=== PATIENT | male | born 1980 | race Caucasian/White ===

== ENCOUNTER 2016-04-15 15:52 | Inpatient (IN) | payer BC ==
[~2016-04-15] VITALS: Ht 185.4 cm; Wt 100.3 kg
[~2016-04-15 15:52] MED LIST: LRT5 PO
[2016-04-15] MEDS ORDERED: ONDANSETRON INJ 2 MG/ML 2 ML VIAL IV STA (16:00)
[2016-04-15] MEDS ORDERED: SODIUM CHLORIDE 0.9% 1000ML 1,000 ML IV STA (16:00)
[2016-04-15] MEDS: HYDROmorphone INJ 2 MG/ML SYR/VIAL IV PRN ×4 (16:12→18:44)
--- NOTE | 2016-04-15 16:20 | EMERGENCY ROOM VISIT NOTE ---
History Report prepared by Nabila: Jeff Jones Under the Supervision of: Dr. Griffin Massey M.D. First contact with patient: 15:25 Chief Complaint: ANKLE PAIN Stated Complaint: ANKLE FX History of Present Illness The patient is a 36 year old male who presents to the Emergency Room via ambulance with complaints of an acute right ankle injury that occurred 1.5 hours prior to arrival. The patient was cutting wood when he slipped in some snow. While trying to catch his balance his right foot got caught and twisted. The patient now complains of severe right ankle pain, which he is not able to put pressure on secondary to pain. The patient was wearing a boot that goes above the ankle. The patient denies head, neck, back, or chest pain. He is not on any blood thinners. The patient does not follow up with an Orthopedist in the area. 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 A total of 10 systems reviewed and were otherwise negative. Past Medical & Surgical Medical Problems: (1) No known health problems Family History No pertinent family history Social History Marital Status: in relationship Housing Status: lives with family Current/Historical Medications Scheduled Hydrocodone/Acetaminophen 5MG/500MG (Vicodin 5MG/500MG), 2 TABLETS PO Q4HR PRN Allergies Coded Allergies: No Known Allergies (Verified , 07/24/07) Physical Exam Vital Signs Date Time Temp Pulse Resp B/P Pulse Ox O2 Delivery O2 Flow Rate FiO2 04/15/16 17:22 88 18 135/84 94 Room Air 04/15/16 16:34 102 20 126/83 93 Room Air 04/15/16 16:10 37.1 94 18 134/94 96 Room Air Physical Exam GENERAL: Patient is in no acute distress. HEENT: No acute trauma, normocephalic atraumatic, mucous membranes moist, no nasal congestion, no scleral icterus. NECK: No stridor, no adenopathy, no meningismus, trachea is midline. LUNGS: Clear to auscultation bilaterally, no wheeze, no rhonchi, breath sounds equal. HEART: Without murmurs gallops or rubs, regular rate and rhythm. ABDOMEN: Soft, nontender, bowel sounds positive, no hernias, no peritonitis. EXTREMITIES: Subtle deformity to distal right tib-fib, some swelling present, no active bleeding, there is a strong dorsalis pedis pulse on the right, the right knee appears uninjured. NEUROLOGIC: Oriented x 3, no acute motor or sensory deficits, no focal weakness. SKIN: No rash, no jaundice, no diaphoresis. Medical Decision & Procedures ER Provider Diagnostic Interpretation: X ray results and stated below per my interpretation and radiologist interpretation. Other radiology results and stated below per my review and radiologist interpretation: RIGHT ANKLE MIN 3 VIEWS ROUTINE, RIGHT TIBIA/FIBULA 2 VIEWS ROUTINE CLINICAL HISTORY: Fall. Right leg and ankle pain. COMPARISON STUDY: None. FINDINGS: Comminuted fractures involving the distal shaft of the right tibia and mid shaft of the right fibula. The tibial fracture demonstrates up to 7 mm of lateral displacement and 9 mm of posterior displacement. There is also 7 mm of posterior displacement of the fibular fracture. There is slight lateral angulation of the fractures. Soft tissue swelling within the mid to distal lower leg. No soft tissue gas identified. The ankle mortise is maintained. IMPRESSION: Comminuted and displaced distal tibial and mid fibular fractures as described above. The ankle mortise is maintained. Electronically signed by: Robert Clark M.D. 04/15/2016 5:03 PM Dictated Date/Time: 04/15/2016 5:00 PM RIGHT ANKLE MIN 3 VIEWS ROUTINE, RIGHT TIBIA/FIBULA 2 VIEWS ROUTINE CLINICAL HISTORY: Fall. Right leg and ankle pain. COMPARISON STUDY: None. FINDINGS: Comminuted fractures involving the distal shaft of the right tibia and mid shaft of the right fibula. The tibial fracture demonstrates up to 7 mm of lateral displacement and 9 mm of posterior displacement. There is also 7 mm of posterior displacement of the fibular fracture. There is slight lateral angulation of the fractures. Soft tissue swelling within the mid to distal lower leg. No soft tissue gas identified. The ankle mortise is maintained. IMPRESSION: Comminuted and displaced distal tibial and mid fibular fractures as described above. The ankle mortise is maintained. Electronically signed by: Robert Clark M.D. 04/15/2016 5:03 PM Dictated Date/Time: 04/15/2016 5:00 PM Laboratory Results Test 04/15/16 16:47 Laboratory results reviewed by me. Medications Administered Medications (Trade) Dose Ordered Sig/Shen Route Start Time Stop Time Status Last Admin Dose Admin Ondansetron HCl (Zofran Inj) 4 mg NOW STAT IV 04/15/16 16:00 04/15/16 16:03 DC 04/15/16 16:11 4 MG Hydromorphone HCl 1 mg 1 mg Q30M PRN IV 04/15/16 16:00 04/29/16 15:59 04/15/16 17:25 1 MG Sodium Chloride (Nss 1000ml) 1,000 ml @ 200 mls/hr Q5H STAT IV 04/15/16 16:00 04/15/16 20:59 04/15/16 16:15 200 MLS/HR ED Course 1600: The patient was evaluated in room C6. A complete history and physical exam was performed. 1600: NSS 1000 ml @ 200 mls/hr, Dilaudid 1 mg IV, Zofran 4 mg IV. 1638: Discussed the case with Dr. Wasserman, [facility]. The patient will be evaluated. 1645: Updated the patient and his significant other. They are expecting Dr. Wasserman. 1700: Splint was ordered for the patient per Dr. Wasserman's request. A CT scan was also ordered. Medical Decision Differential diagnosis includes tib-fib ankle or foot fracture, ankle dislocation, neurovascular compromise, open fracture. The patient presents with an injury to his right distal leg and ankle. The right distal leg appeared fractured clinically. He had a strong distal dorsalis pedis pulse on the right. The foot was warm. There was no open areas to suggest open fracture. No significant dislocation clinically. Films of the right tib-fib and ankle show a comminuted and displaced fracture of both the fibula and tibia distally. The ankle itself was in proper position without dislocation. The patient received IV Dilaudid, IV saline and IV Zofran. He eventually had a splint applied to the right lower leg. I contacted Dr. Guardado of orthopedics. The patient will be brought into the hospital for surgical repair. The family is aware of the findings. Of note, it does not appear that the patient has suffered any other injuries. He has no other complaints and the only area of pain is at the distal right leg. Consults Time Called: 1630 Consulting Physician: Dr. Wasserman, [facility] Returned Call: [phone]: Discussed the case with Dr. Wasserman, [facility]. The patient will be evaluated. Impression Primary Impression: Closed fracture of distal end of right fibula and tibia Scribe Attestation The scribe's documentation has been prepared under my direction and personally reviewed by me in its entirety. I confirm that the note above accurately reflects all work, treatment, procedures, and medical decision making performed by me. Departure Information Dispostion Being Evaluated By Surgeon Referrals No Doctor, Assigned (PCP) Patient Instructions My [facility]
--- NOTE | 2016-04-15 17:04 | DIAGNOSTIC IMAGING REPORT ---
RIGHT ANKLE MIN 3 VIEWS ROUTINE, RIGHT TIBIA/FIBULA 2 VIEWS ROUTINE CLINICAL HISTORY: Fall. Right leg and ankle pain. COMPARISON STUDY: None. FINDINGS: Comminuted fractures involving the distal shaft of the right tibia and mid shaft of the right fibula. The tibial fracture demonstrates up to 7 mm of lateral displacement and 9 mm of posterior displacement. There is also 7 mm of posterior displacement of the fibular fracture. There is slight lateral angulation of the fractures. Soft tissue swelling within the mid to distal lower leg. No soft tissue gas identified. The ankle mortise is maintained. IMPRESSION: Comminuted and displaced distal tibial and mid fibular fractures as described above. The ankle mortise is maintained. Electronically signed by: Robert Clark M.D. 04/15/2016 5:03 PM Dictated Date/Time: 04/15/2016 5:00 PM
[2016-04-15] MEDS ORDERED: NURSING VERBAL MED ORDER ONE (17:15)
[2016-04-15] MEDS ORDERED: ONDANSETRON INJ 2 MG/ML 2 ML VIAL IV PRN (17:45)
[2016-04-15 17:55] VITALS: O2SAT 94; Ht 185.4 cm; Wt 100.3 kg
--- NOTE | 2016-04-15 18:12 | DIAGNOSTIC IMAGING REPORT ---
CHEST ONE VIEW PORTABLE HISTORY: pre-op COMPARISON: None. FINDINGS: The lungs are clear. Cardiac silhouette is normal in size. No pleural effusions. No pneumothorax. IMPRESSION: No acute process. Electronically signed by: Robert Clark M.D. 04/15/2016 6:11 PM Dictated Date/Time: 04/15/2016 6:10 PM
--- NOTE | 2016-04-15 18:41 | DIAGNOSTIC IMAGING REPORT ---
RIGHT LOWER LEG CT CT DOSE: 251.08 mGy.cm HISTORY: right tib/fib fx Right TECHNIQUE: Multiaxial CT images of the right lower leg were performed and reformatted in the sagittal and coronal plane without the use of contrast. COMPARISON: Right tibia/fibular 04/15/2016. FINDINGS: Subcutaneous edema/hemorrhage within the mid to distal right lower leg. This is secondary to the displaced distal tibial and mid fibular fractures. The fibular fracture is comminuted. The tibial fracture is only slightly comminuted. There are 2 punctate foci of gas adjacent to the medial edge of the distal tibial fracture. However, the tibial fracture does not clearly break the skin surface. There is also nondisplaced posterior malleolus fracture at the distal tibia. The ankle mortise is well-maintained. The distal tibial fracture demonstrates up to 9 mm of lateral displacement. The mid fibular fracture demonstrates 7 mm of posterior displacement. There is also mild posterior angulation of the fibular fracture. IMPRESSION: 1. Redemonstration of the comminuted and displaced distal tibial and mid fibular fractures as described above. 2. There is also a nondisplaced posterior malleolus fracture of the distal tibia. 3. Punctate foci of gas adjacent to the medial aspect of the tibial fracture raising possibility of a compound fracture. However, the fracture does not clearly break the skin surface at this time. Electronically signed by: Robert Clark M.D. 04/15/2016 6:40 PM Dictated Date/Time: 04/15/2016 6:34 PM
[2016-04-15 18:45] VITALS: BP 110/77; PULSE 85; TEMP 37; O2SAT 97
[2016-04-15] MEDS: MoRPHine SULFATE 4 MG/ML 1 ML CARP\\VIAL IV PRN ×2 (18:59→23:31)
[2016-04-15] MEDS: D5W AND 1/2NSS 1,000 ML IV SCH ×2 (19:11→23:44)
[2016-04-15 19:14] LABS: HEMATOCRIT 41.9 % (42-52); MEAN CELL VOLUME 87.3 fL (80-100); MEAN CORPUSCULAR HEMOGLOBIN 30.6 pg (25-34); MEAN CORPUSCULAR HGB CONC 35.1 g/dl (32-36); PLATELET COUNT 174 K/uL (130-400); WHITE BLOOD COUNT 11.55 K/uL (4.8-10.8)
[2016-04-15 19:30] LABS: PARTIAL THROMBOPLASTIN RATIO 0.9; PROTHROMBIN TIME (PATIENT) 10.3 SECONDS (9.0-12.0)
[2016-04-15 19:35] LABS: BUN/CREATININE RATIO 17.6 (10-20); CALCIUM 8.6 mg/dl (8.5-10.1); CREATININE 1.2 mg/dl (0.60-1.40); POTASSIUM 4.5 mmol/L (3.5-5.1)
[2016-04-15] MEDS: DOCUSATE SODIUM 100 MG CAP PO SCH (20:44)
[2016-04-15] MEDS: OXYCODONE HCL IR 5 MG TAB (IMMEDIATE RELEASE) PO PRN (20:45)
[2016-04-15 23:04] VITALS: BP 113/70; PULSE 77; TEMP 37.1; O2SAT 92
--- NOTE | 2016-04-15 23:05 | History and Physical ---
History & Physical Date & Time of Service: Apr 15, 2016 at 22:53 Chief Complaint: Right Tib/Fib Fracture Primary Care Physician: No Doctor, Assigned History of Present Illness Source: patient, spouse The patient is a 36-year-old male who presents emergency department via ambulance after an acute right ankle injury that occurred at one half hours prior to arrival. The patient reports that he was cutting wood when he slipped in some snow. His right foot got caught in between woodpiles, and when he twisted he developed severe right ankle pain and has been unable to put any pressure on the foot due to pain. Past Medical/Surgical History Medical Problems: (1) No known health problems Status: Chronic Family History No pertinent family history Social History Smoking Status: Current Some Day Smoker Smokeless Tobacco Use: No Alcohol Use: none Drug Use: cocaine Marital Status: , in relationship Housing status: lives with family Occupational Status: employed Multi-Drug Resistant Organisms History of MDRO: No Allergies Coded Allergies: No Known Allergies (Verified , 04/15/16) Home Medications No Active Prescriptions or Reported Meds Review of Systems The patient denies chest pain, palpitations, shortness of breath, cough, vision change, hearing change, sore throat, fevers, chills, sweats, weight change, fatigue, nausea, vomiting, abdominal pain, pelvic pain, blood in urine or stool , dysuria, urinary frequency or urgency, lightheadedness, dizziness, headache, memory loss, rash, abnormal bruising or bleeding, generalized weakness, numbness or tingling in arms, arthralgias or myalgias, back or neck pain, night sweats, or allergy symptoms. The review of systems is otherwise negative other than for that already noted above, and at least 10 systems have been reviewed. Physical Exam Vital Signs Date Time Temp Pulse Resp B/P Pulse Ox O2 Delivery O2 Flow Rate FiO2 04/15/16 18:45 37.0 85 16 110/77 97 Room Air 04/15/16 18:45 Room Air 04/15/16 17:55 94 Room Air 04/15/16 17:22 88 18 135/84 94 Room Air 04/15/16 16:34 102 20 126/83 93 Room Air 04/15/16 16:10 37.1 94 18 134/94 96 Room Air The patient is awake, well-developed and adequately nourished, alert and oriented 3, normocephalic and atraumatic, lying in bed and in mild to moderate acute distress secondary to right leg pain. HEENT--PERRL, EOMI, mucous membranes and oropharynx moist. Neck--supple, no JVD or bruits, thyroid normal, trachea midline, no adenopathy. Heart--normal S1 and S2, no extra beats, no murmurs, rubs or gallops. Lungs--clear bilaterally with good air movement, no respiratory distress, no accessory muscle use. Abdomen--normal bowel sounds and soft, nontender and nondistended, no hernias or masses, no organomegaly. Extremities--no cyanosis, clubbing or edema. There are good distal pulses b/l. Dermatologic--normal skin turgor, normal color, warm and dry, no abnormal lymph nodes. Right lower extremity with bruising and swelling over distal third. Neurologic--cranial nerves II through XII grossly intact. Rheumatologic--pain and swelling noted over distal third of right leg ankle and foot. Psychiatric--normal affect. Diagnostics Laboratory Results Results Past 24 Hours Test 04/15/16 19:06 Range/Units White Blood Count 11.55 4.8-10.8 K/uL Red Blood Count 4.80 4.7-6.1 M/uL Hemoglobin 14.7 14.0-18.0 g/dL Hematocrit 41.9 42-52 % Mean Corpuscular Volume 87.3 80-100 fL Mean Corpuscular Hemoglobin 30.6 25-34 pg Mean Corpuscular Hemoglobin Concent 35.1 32-36 g/dl RDW Standard Deviation 42.4 36.4-46.3 fL RDW Coefficient of Variation 13.2 11.5-14.5 % Platelet Count 174 130-400 K/uL Mean Platelet Volume 11.0 7.4-10.4 fL Prothrombin Time 10.3 9.0-12.0 SECONDS Prothromb Time International Ratio 1.0 0.9-1.1 Activated Partial Thromboplast Time 22.9 21.0-31.0 SECONDS Partial Thromboplastin Ratio 0.9 Sodium Level 144 136-145 mmol/L Potassium Level 4.5 3.5-5.1 mmol/L Chloride Level 108 98-107 mmol/L Carbon Dioxide Level 28 21-32 mmol/L Anion Gap 8.0 3-11 mmol/L Blood Urea Nitrogen 21 7-18 mg/dl Creatinine 1.20 0.60-1.40 mg/dl Est Creatinine Clear Calc Drug Dose 106.0 ml/min Estimated GFR () 89.6 Estimated GFR (Non- 77.3 BUN/Creatinine Ratio 17.6 10-20 Random Glucose 99 70-99 mg/dl Calcium Level 8.6 8.5-10.1 mg/dl Diagnostic Radiology Patient Name: DALTON ELIZABETH Unit Number: [id number] Dictated: 04/15/161699 Transcribed: 04/15/161699 [facility] Printed Date/Time: [~ rep prt dt]/[~ rep prt tm] [~ rep ct labl] - [~ rep ct ivnm] [facility] Radiology Department [place], [place] [id number] Dictated: 04/15/161699 Transcribed: 04/15/161699 [facility] Printed Date/Time: [~ rep prt dt]/[~ rep prt tm] [~ rep ct labl] - [~ rep ct ivnm] [~ rep ct add3]] RIGHT ANKLE MIN 3 VIEWS ROUTINE, RIGHT TIBIA/FIBULA 2 VIEWS ROUTINE CLINICAL HISTORY: Fall. Right leg and ankle pain. COMPARISON STUDY: None. FINDINGS: Comminuted fractures involving the distal shaft of the right tibia and mid shaft of the right fibula. The tibial fracture demonstrates up to 7 mm of lateral displacement and 9 mm of posterior displacement. There is also 7 mm of posterior displacement of the fibular fracture. There is slight lateral angulation of the fractures. Soft tissue swelling within the mid to distal lower leg. No soft tissue gas identified. The ankle mortise is maintained. IMPRESSION: Comminuted and displaced distal tibial and mid fibular fractures as described above. The ankle mortise is maintained. Electronically signed by: Robert Clark M.D. 04/15/2016 5:03 PM Dictated Date/Time: 04/15/2016 5:00 PM The status of this report is Signed. Draft = Not yet reviewed or approved by Radiologist. Signed = Reviewed and approved by Radiologist. <AttendingPhy></AttendingPhy> <FamilyPhy>No Doctor, Assigned</FamilyPhy> < PrimaryPhy>No Doctor, Assigned</PrimaryPhy> <UnitNumber>[id number]</UnitNumber> <VisitNumber>[id number]</VisitNumber> <PatientName>DALTON ELIZABETH</PatientName > <DateOfBirth>1980</DateOfBirth> <Location>[facility]</Location> <ServiceDate> 04/15/16</ServiceDate> <MNE>ESINDI</MNE> <OrderingPhy>Griffin Massey M.D.</ OrderingPhy> <OrderingPhyMNE>f rep ord dr peters</OrderingPhyMNE> <DictatingPhyMNE> f rep dict dr peters</DictatingPhyMNE> <CCListMNE>f rep ct mne</CCListMNE> < AdmittingPhyMNE>f pt admit dr peters</AdmittingPhyMNE> <AttendingPhyMNE>f pt attend dr peters</AttendingPhyMNE> <ConsultingPhyMNE>f pt consult dr peters</ConsultingPhyMNE> <FamilyPhyMNE>f pt fam dr peters</FamilyPhyMNE> <OtherPhyMNE>f pt other dr peters</OtherPhyMNE> < PrimaryPhyMNE>f pt prim care dr peters</PrimaryPhyMNE> <ReferringPhyMNE>f pt referring dr peters</ReferringPhyMNE> Patient Name: DALTON ELIZABETH Unit Number: [id number] Dictated: 04/15/161699 Transcribed: 04/15/161699 [facility] Printed Date/Time: [~ rep prt dt]/[~ rep prt tm] [~ rep ct labl] - [~ rep ct ivnm] [facility] [place] [place] [address] Dictated: 04/15/161699 Transcribed: 04/15/161699 [facility] Printed Date/Time: [~ rep prt dt]/[~ rep prt tm] [~ rep ct labl] - [~ rep ct ivnm] [~ rep ct add3]] RIGHT ANKLE MIN 3 VIEWS ROUTINE, RIGHT TIBIA/FIBULA 2 VIEWS ROUTINE CLINICAL HISTORY: Fall. Right leg and ankle pain. COMPARISON STUDY: None. FINDINGS: Comminuted fractures involving the distal shaft of the right tibia and mid shaft of the right fibula. The tibial fracture demonstrates up to 7 mm of lateral displacement and 9 mm of posterior displacement. There is also 7 mm of posterior displacement of the fibular fracture. There is slight lateral angulation of the fractures. Soft tissue swelling within the mid to distal lower leg. No soft tissue gas identified. The ankle mortise is maintained. IMPRESSION: Comminuted and displaced distal tibial and mid fibular fractures as described above. The ankle mortise is maintained. Electronically signed by: Robert Clark M.D. 04/15/2016 5:03 PM Dictated Date/Time: 04/15/2016 5:00 PM The status of this report is Signed. Draft = Not yet reviewed or approved by Radiologist. Signed = Reviewed and approved by Radiologist. <AttendingPhy></AttendingPhy> <FamilyPhy>No Doctor, Assigned</FamilyPhy> < PrimaryPhy>No Doctor, Assigned</PrimaryPhy> <UnitNumber>[id number]</UnitNumber> <VisitNumber>[id number]</VisitNumber> <PatientName>CLARADALTON</PatientName > <DateOfBirth>1980</DateOfBirth> <Location>[facility]</Location> <ServiceDate> 04/15/16</ServiceDate> <MNE>ESINDI</MNE> <OrderingPhy>Griffin Massey M.D.</ OrderingPhy> <OrderingPhyMNE>f rep ord dr peters</OrderingPhyMNE> <DictatingPhyMNE> f rep dict dr peters</DictatingPhyMNE> <CCListMNE>f rep ct fran</CCListMNE> < AdmittingPhyMNE>f pt admit dr peters</AdmittingPhyMNE> <AttendingPhyMNE>f pt attend dr peters</AttendingPhyMNE> <ConsultingPhyMNE>f pt consult dr peters</ConsultingPhyMNE> <FamilyPhyMNE>f pt fam dr peters</FamilyPhyMNE> <OtherPhyMNE>f pt other dr peters</OtherPhyMNE> < PrimaryPhyMNE>f pt prim care dr peters</PrimaryPhyMNE> <ReferringPhyMNE>f pt referring dr peters</ReferringPhyMNE> Patient Name: DALTON ELIZABETH Unit Number: [id number] Dictated: 04/15/161833 Transcribed: 04/15/161833 [facility] Printed Date/Time: [~ rep prt dt]/[~ rep prt tm] [~ rep ct labl] - [~ rep ct ivnm] [facility] [place] [address] Dictated: 04/15/161833 Transcribed: 04/15/161833 [facility] Printed Date/Time: [~ rep prt dt]/[~ rep prt tm] [~ rep ct labl] - [~ rep ct ivnm] RIGHT LOWER LEG CT CT DOSE: 251.08 mGy.cm HISTORY: right tib/fib fx Right TECHNIQUE: Multiaxial CT images of the right lower leg were performed and reformatted in the sagittal and coronal plane without the use of contrast. COMPARISON: Right tibia/fibular 04/15/2016. FINDINGS: Subcutaneous edema/hemorrhage within the mid to distal right lower leg. This is secondary to the displaced distal tibial and mid fibular fractures. The fibular fracture is comminuted. The tibial fracture is only slightly comminuted. There are 2 punctate foci of gas adjacent to the medial edge of the distal tibial fracture. However, the tibial fracture does not clearly break the skin surface. There is also nondisplaced posterior malleolus fracture at the distal tibia. The ankle mortise is well-maintained. The distal tibial fracture demonstrates up to 9 mm of lateral displacement. The mid fibular fracture demonstrates 7 mm of posterior displacement. There is also mild posterior angulation of the fibular fracture. IMPRESSION: 1. Redemonstration of the comminuted and displaced distal tibial and mid fibular fractures as described above. 2. There is also a nondisplaced posterior malleolus fracture of the distal tibia. 3. Punctate foci of gas adjacent to the medial aspect of the tibial fracture raising possibility of a compound fracture. However, the fracture does not clearly break the skin surface at this time. Electronically signed by: Robert Clark M.D. 04/15/2016 6:40 PM Dictated Date/Time: 04/15/2016 6:34 PM The status of this report is Signed. Draft = Not yet reviewed or approved by Radiologist. Signed = Reviewed and approved by Radiologist. <AttendingPhy></AttendingPhy> <FamilyPhy>No Doctor, Assigned</FamilyPhy> < PrimaryPhy>No Doctor, Assigned</PrimaryPhy> <UnitNumber>[id number]</UnitNumber> <VisitNumber>[id number]</VisitNumber> <PatientName>DALTON ELIZABETH</PatientName > <DateOfBirth>1980</DateOfBirth> <Location>[facility]</Location> <ServiceDate> 04/15/16</ServiceDate> <MNE>ESINDI</MNE> <OrderingPhy>Griffin Massey M.D.</ OrderingPhy> <OrderingPhyMNE>f rep ord dr peters</OrderingPhyMNE> <DictatingPhyMNE> f rep dict dr peters</DictatingPhyMNE> <CCListMNE>f rep ct mne</CCListMNE> < AdmittingPhyMNE>f pt admit dr peters</AdmittingPhyMNE> <AttendingPhyMNE>f pt attend dr peters</AttendingPhyMNE> <ConsultingPhyMNE>f pt consult dr peters</ConsultingPhyMNE> <FamilyPhyMNE>f pt fam dr peters</FamilyPhyMNE> <OtherPhyMNE>f pt other dr peters</OtherPhyMNE> < PrimaryPhyMNE>f pt prim care dr peters</PrimaryPhyMNE> <ReferringPhyMNE>f pt referring dr peters</ReferringPhyMNE> Patient Name: DALTON ELIZABETH Unit Number: [id number] Dictated: 04/15/161809 Transcribed: 04/15/161809 [facility] Printed Date/Time: [~ rep prt dt]/[~ rep prt tm] [~ rep ct labl] - [~ rep ct ivnm] [facility] [place] [place] [address] Dictated: 04/15/161809 Transcribed: 04/15/161809 [facility] Printed Date/Time: [~ rep prt dt]/[~ rep prt tm] [~ rep ct labl] - [~ rep ct ivnm] CHEST ONE VIEW PORTABLE HISTORY: pre-op COMPARISON: None. FINDINGS: The lungs are clear. Cardiac silhouette is normal in size. No pleural effusions. No pneumothorax. IMPRESSION: No acute process. Electronically signed by: Robert Clark M.D. 04/15/2016 6:11 PM Dictated Date/Time: 04/15/2016 6:10 PM The status of this report is Signed. Draft = Not yet reviewed or approved by Radiologist. Signed = Reviewed and approved by Radiologist. <AttendingPhy></AttendingPhy> <FamilyPhy>No Doctor, Assigned</FamilyPhy> < PrimaryPhy>No Doctor, Assigned</PrimaryPhy> <UnitNumber>[id number]</UnitNumber> <VisitNumber>[id number]</VisitNumber> <PatientName>CLARADALTON</PatientName > <DateOfBirth>1980</DateOfBirth> <Location>[facility]</Location> <ServiceDate> 04/15/16</ServiceDate> <MNE>ESINDI</MNE> <OrderingPhy>Ulysses Rooney M.D.< /OrderingPhy> <OrderingPhyMNE>f rep ord dr peters</OrderingPhyMNE> <DictatingPhyMNE >f rep dict dr peters</DictatingPhyMNE> <CCListMNE>f rep ct mickye</CCListMNE> < AdmittingPhyMNE>f pt admit dr peters</AdmittingPhyMNE> <AttendingPhyMNE>f pt attend dr peters</AttendingPhyMNE> <ConsultingPhyMNE>f pt consult dr peters</ConsultingPhyMNE> <FamilyPhyMNE>f pt fam dr peters</FamilyPhyMNE> <OtherPhyMNE>f pt other dr peters</OtherPhyMNE> < PrimaryPhyMNE>f pt prim care dr peters</PrimaryPhyMNE> <ReferringPhyMNE>f pt referring dr peters</ReferringPhyMNE> Impression Assessment and Plan Right tib-fib fracture, admitted to the orthopedic surgical service of Dr. Wasserman. He is generally healthy and active, has a normal chest x-ray, his EKG is still pending. If his EKG gets performed and is normal, the patient would be considered an acceptable risk for the upcoming surgery. If there is concern about compound fracture, the patient needs to be on broad-spectrum antibiotics. 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 Y/N: No Risk Level: Moderate Social Service Consult None Apply
[2016-04-15] MEDS ORDERED: VANCOMYCIN INJ 2,500 MG in SODIUM CHLORIDE 0.9% 500ML 500 ML IV STA (23:32)
[2016-04-15] MEDS ORDERED: VANCOMYCIN CONSULT ACTIVE PRN (23:45)
[2016-04-16] VITALS (13 sets, daily range): BP systolic 97–138; BP diastolic 58–78; PULSE 78–98; TEMP 37.1–37.5; O2SAT 90–97
[2016-04-16] MEDS: OXYCODONE HCL IR 5 MG TAB (IMMEDIATE RELEASE) PO PRN ×2 (01:41→05:31)
[2016-04-16] MEDS: MoRPHine SULFATE 4 MG/ML 1 ML CARP\\VIAL IV PRN (03:25)
--- NOTE | 2016-04-16 05:11 | Pharmacy Progress Note ---
Pharmacy Antibiotic Consult Date of Service: Apr 16, 2016. Pharmacy Dosing Scope Pharmacy is consulted to initiate Vancomycin IV dosing therapy, order appropriate labs and adjust drug dose/frequency. Subjective The patient is a 36 year old male admitted on Apr 15, 2016 at 17:31. Objective Height (Feet): 6 Height (Inches): 1.00 Weight (Kilograms): 100.300 Lab Results (24hrs): Laboratory Tests Test 04/15/16 19:06 BUN/Creatinine Ratio 17.6 Blood Urea Nitrogen 21 mg/dl Creatinine 1.20 mg/dl White Blood Count 11.55 K/uL Assessment & Plan ASSESSMENT: * Patient is a 36yo male admitted following a fall that resulted in R tib/fib displaced fracture. There is some concern of compound fracture, so broad- spectrum abx were initiated. Plan is for orthopedic evaluation and possible OR. PLAN: VANCOMYCIN: * Loading dose: Vancomycin 2500 mg (~25mg/kg) IV X 1 dose then: * Vancomycin 1500 mg IV every 10 hours. * Patient's estimated p'kinetic parameters (based on CrCl >100mL/min): * Vd ~ 0.7L/kg Ke ~ 0.087/hr t1/2 ~ 8hr * Goal trough level estimate: between 15 - 20 mcg/mL for bone/joint infx * Pharmacy will evaluate a vancomycin level near steady-state. Will order levels once surgical plans are in order. Pharmacy will continue to follow and will adjust dose/frequency as necessary. Thank you
[2016-04-16] MEDS: HEPARIN SOD 5000 UNIT/0.5 ML CARP SQ SCH ×2 (05:38→06:00)
[2016-04-16] MEDS ORDERED: CEFAZOLIN 2000 MG/60 ML D5W IV SCH (06:00)
[2016-04-16] MEDS: D5W AND 1/2NSS 1,000 ML IV SCH ×2 (06:10→13:37)
[2016-04-16] MEDS ORDERED: NALOXONE HCL 0.4 MG/1 ML VIAL/CARP IV PRN (08:30)
[2016-04-16] MEDS: MoRPHine SULFATE 1 MG/ML 50 ML PCA CASS IV PRN ×4 (08:43→23:09)
[2016-04-16] MEDS: DOCUSATE SODIUM 100 MG CAP PO SCH ×3 (09:00→22:16)
[2016-04-16] MEDS: SODIUM CHLORIDE 0.9% 1000ML 1,000 ML IV SCH ×2 (09:02→23:19)
--- NOTE | 2016-04-16 09:08 | HISTORY & PHYSICAL EXAMINATION ---
DATE OF ADMISSION: 04/15/2016 REASON FOR ADMISSION: Right distal tibia and fibular fracture. HISTORY OF PRESENT ILLNESS: The patient is a 36-year-old white male who states that he was cutting firewood yesterday. He states that when he took a step, his foot slipped and went down in between 2 logs. As he tried to back his way out of the log he had lost his balance and ended up twisting his right foot and he heard a large crack and had immediate pain in his right ankle. He was unable to bear weight on it and he was brought to [facility] ED where he was seen by the staff. X-rays were taken and then found that he had a distal tibia fracture, along with a midshaft to distal fibular fracture. He was put into a splint and admitted for further orthopedic care. The patient denies any loss of consciousness after the fall. He denies any shortness of breath, chest pain, lightheadedness prior to the fall or after. PAST MEDICAL HISTORY: Denies hypertension, diabetes mellitus, tuberculosis, hepatitis, COPD, or rheumatic fever. PAST SURGICAL HISTORY: Ethmoidectomy, sinus surgery in 2007. FAMILY HISTORY: Noncontributory. SOCIAL HISTORY: The patient has a history of tobacco use, but not regularly. He does not use alcohol and is . ALLERGIES: NKDA. MEDICATIONS: None. REVIEW OF SYSTEMS: No recent fevers, chills, night sweats, unexplained weight loss or weight gain. No flu or cold-like symptoms. No increased cough or sputum production. No shortness of breath at rest or on exertion. No hemoptysis. No history of chest pain, chest pressure, irregular heartbeat. No abdominal pain. No unusual nausea, vomiting or diarrhea. No history of hepatitis. No melena, hematochezia, hematemesis. No history of hematuria, pyuria, dysuria or renal calculi. No history of frequent urinary tract infection. No history of seizure disorder, CVA, TIA. PHYSICAL EXAMINATION: VITAL SIGNS: Noted to be temperature 37.1, pulse 84, respirations 16, BP 97/58, pulse ox 90 on room air. GENERAL: The patient is a well-developed, well-nourished white male who is alert and oriented x3 and in mild amount of distress secondary to right ankle pain. SKIN: Warm and dry. Turgor is good. HEENT: Head is normocephalic, atraumatic. There is no scleral icterus or injection. Nasal airway is patent. Oral mucosa is pink and moist. NECK: Supple without bruits or adenopathy. HEART: Regular rate and rhythm without murmurs or gallops noted. LUNGS: Clear to auscultation. ABDOMEN: Soft, round and nontender. Bowel sounds are present and active x4. GENITALIA AND RECTAL: Not performed at this time. EXTREMITIES: On examination of the patient's right lower extremity, he has a posterior splint placed with a stirrup over the medial and lateral aspect of the lower extremity as well. Toes are pink and warm and have good sensation and are all mobile at this time. Splint is left intact during exam. His right knee is nontender on palpation and has good range of motion. Hip is nontender at this time as well. Left lower extremity is benign and left hip, knee, and ankle have good range of motion and strengths. Upper extremities are unaffected and he has excellent range of motion of his upper extremities at this time with strengths being equal bilaterally. Distal pulses, he has got good capillary refill, less than 2 seconds noted in the toes. He has got swelling in the dorsum of the right foot and pulse is palpable. Upper extremity pulses are 2/4 bilaterally. NEUROLOGICAL: Cranial nerves II-XII are intact. DIAGNOSIS: Right tibia fibula fracture. PLAN: At this time, the patient is on bed rest and continue with ice and elevation and pain control. He will likely need ORIF versus IM rodding of the right tibia. Procedures have been explained to the patient in detail going over risks and benefits for the patient of which he is in agreement for the surgery. We will plan for OR today with [facility] physician. Discussed with the patient that if he was too swollen in the lower extremity that surgery would have to be postponed until swelling comes down. This will be assessed at the time of the operation.
[2016-04-16] MEDS ORDERED: VANCOMYCIN INJ 1,500 MG in SODIUM CHLORIDE 0.9% 500ML 500 ML IV SCH (10:00)
--- NOTE | 2016-04-16 11:23 | Progress Note ---
Subjective Date of Service: Apr 16, 2016. Subjective Pt evaluation today including: conversation w/ patient, physical exam, chart review, lab review, review of studies, review of inpatient medication list Problem List Medical Problems: (1) Closed fracture of distal end of right fibula and tibia Status: Acute Review of Systems Constitutional: No chills, No fever Respiratory: No cough, No dyspnea on exertion, No shortness of breath, No sputum, No wheezing Cardiac: No chest pain, No orthopnea Abdomen: No constipation, No diarrhea, No nausea, No pain, No vomiting Musculoskeletal: + joint pain, No muscle pain Male : No dysuria, No urinary frequency Neurologic: No numbness/tingling, No paralysis, No weakness Objective Vital Signs Date Time Temp Pulse Resp B/P Pulse Ox O2 Delivery O2 Flow Rate FiO2 04/16/16 10:45 37.3 83 16 138/77 93 Room Air 04/16/16 09:45 37.2 78 16 124/71 92 Room Air 04/16/16 08:45 37.2 80 16 113/72 93 Room Air 04/16/16 07:30 Room Air 04/16/16 07:18 37.1 84 16 97/58 90 Room Air 04/15/16 23:35 Room Air 04/15/16 23:04 37.1 77 16 113/70 92 Room Air 04/15/16 18:45 37.0 85 16 110/77 97 Room Air 04/15/16 18:45 Room Air 04/15/16 17:55 94 Room Air 04/15/16 17:22 88 18 135/84 94 Room Air 04/15/16 16:34 102 20 126/83 93 Room Air 04/15/16 16:10 37.1 94 18 134/94 96 Room Air Physical Exam General Appearance: WD/WN, + mild distress Neck: supple, no adenopathy Respiratory/Chest: lungs clear, normal breath sounds Cardiovascular: no edema, no gallop Abdomen: non tender, soft Neurologic/Psychiatric: alert, oriented x 3 Laboratory Results Last 24 Hours Test 04/15/16 19:06 White Blood Count 11.55 K/uL Red Blood Count 4.80 M/uL Hemoglobin 14.7 g/dL Hematocrit 41.9 % Mean Corpuscular Volume 87.3 fL Mean Corpuscular Hemoglobin 30.6 pg Mean Corpuscular Hemoglobin Concent 35.1 g/dl RDW Standard Deviation 42.4 fL RDW Coefficient of Variation 13.2 % Platelet Count 174 K/uL Mean Platelet Volume 11.0 fL Prothrombin Time 10.3 SECONDS Prothromb Time International Ratio 1.0 Activated Partial Thromboplast Time 22.9 SECONDS Partial Thromboplastin Ratio 0.9 Sodium Level 144 mmol/L Potassium Level 4.5 mmol/L Chloride Level 108 mmol/L Carbon Dioxide Level 28 mmol/L Anion Gap 8.0 mmol/L Blood Urea Nitrogen 21 mg/dl Creatinine 1.20 mg/dl Est Creatinine Clear Calc Drug Dose 106.0 ml/min Estimated GFR () 89.6 Estimated GFR (Non- 77.3 BUN/Creatinine Ratio 17.6 Random Glucose 99 mg/dl Calcium Level 8.6 mg/dl Assessment and Plan Right tib-fib fracture, admitted to the orthopedic surgical service of Dr. Wasserman. He is generally healthy and active, has a normal chest x-ray, his EKG determined incomplete RBBB. The patient is an acceptable risk for the upcoming surgery. 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
--- NOTE | 2016-04-16 15:38 | History & Physical Bridge Note ---
H&P Re-Evaluation Bridge Note: I have examined the patient, reviewed the History & Physical and in the interval since the performance of the History & Physical I have noted the following changes of clinical significance: Will require tibial nailing today.
[2016-04-16] MEDS ORDERED: MIDAZOLAM HCL 1 MG/ML 2ML VIAL ONE ×2 (15:39→15:47)
[2016-04-16] MEDS ORDERED: LIDOCAINE HCL 2% 2 ML VIAL (20MG/ML) ONE (15:39)
[2016-04-16] MEDS ORDERED: ONDANSETRON INJ 2 MG/ML 2 ML VIAL ONE ×2 (15:39→19:14)
[2016-04-16] MEDS ORDERED: PROPOFOL IV EMULSION 10 MG/ML 20 ML VIAL IV ONE (15:39)
[2016-04-16] MEDS ORDERED: ROCURONIUM BROMIDE 10 MG/ML 5 ML VIAL ONE (15:39)
[2016-04-16] MEDS ORDERED: DEXAMETHASONE SOD INJ 4 MG/ML VIAL ONE (15:39)
[2016-04-16] MEDS ORDERED: HYDROmorphone INJ 2 MG/ML SYR/VIAL ONE (15:40)
[2016-04-16] MEDS ORDERED: FENTANYL CITRATE INJ 50 MCG/1 ML 2 ML VIAL ONE (15:40)
[2016-04-16] MEDS ORDERED: BUPIVACAINE 0.5 % 5 MG/1 ML PF 10ML VIAL ONE (15:54)
[2016-04-16] MEDS ORDERED: LACTATED RINGER'S 1000ML 1,000 ML IV PRN (16:23)
[2016-04-16] MEDS ORDERED: ONDANSETRON INJ 2 MG/ML 2 ML VIAL IV PRN (16:30)
[2016-04-16] MEDS ORDERED: FENTANYL CITRATE INJ 50 MCG/1 ML 2 ML VIAL IV PRN (16:30)
[2016-04-16] MEDS ORDERED: PHENYLEPHRINE 100MCG/ML 5ML SYR ONE (18:39)
--- NOTE | 2016-04-16 19:41 | [facility] Post Operative Brief Note ---
Immediate Operative Summary Operative Date Apr 16, 2016. Pre-Operative Diagnosis Right Closed Displaced Distal 1/3 Tibia Fracture; Closed Displaced Middle 1/3 Fibula Fracture Post-Operative Diagnosis Right Closed Displaced Distal 1/3 Tibia Fracture; Closed Displaced Middle 1/3 Fibula Fracture Procedure(s) Performed Left Intramedullary Nailing Tibia; Placement of Blocking Screws x3 Surgeon Dr. Wasserman Electronics Mechanic Surgeon(s) Cristhian Amin PA-C Estimated Blood Loss 25ml Findings See Dict Specimens None Drains None Anesthesia GLMA w/ regional block R LE Complication(s) None Disposition Recovery Room / PACU
[2016-04-16] MEDS ORDERED: ALUMINUM/MAGNESIUM/SIMETH (MAALOX MAX) 30 ML UDC PO PRN (19:45)
[2016-04-16] MEDS ORDERED: MAGNESIUM HYDROXIDE SUSP 30 ML UDC PO PRN (19:45)
[2016-04-16] MEDS ORDERED: VANCOMYCIN INJ 0 MG in SODIUM CHLORIDE 0.9% 500ML 500 ML IV SCH (19:45)
--- NOTE | 2016-04-16 20:22 | DIAGNOSTIC IMAGING REPORT ---
RIGHT TIBIA/FIBULA 2 VIEWS ROUTINE CLINICAL HISTORY: Postop fracture fixation. COMPARISON: 04/15/2016 DISCUSSION: There is internal fixation of a comminuted fracture the distal right tibial shaft width and interlocking intramedullary adilene. There is evidence for fracture of the superior stabilization screw. Also evident is a comminuted fracture of the mid fibular shaft. The 10 cm butterfly fragment is distracted x 5 mm. IMPRESSION: Internal fixation of a comminuted distal tibial fracture with an intramedullary adilene. The superior stabilization screw is fractured. Also evident is a comminuted mid fibular fracture. There is been application of a fiberglass splint Electronically signed by: Barber Anton M.D. 04/16/2016 8:21 PM Dictated Date/Time: 04/16/2016 8:18 PM
--- NOTE | 2016-04-16 20:25 | DIAGNOSTIC IMAGING REPORT ---
INTRAOPERATIVE RIGHT TIBIA AND FIBULA (4 VIEWS) CLINICAL HISTORY: Intramedullary adilene fixation. COMPARISON STUDY: 04/15/2016 FINDINGS: 334 seconds of fluoroscopic time was utilized. 4 intraoperative fluoroscopic spot images are provided for interpretation. The distal tibial fracture has been fixated with intramedullary adilene. One of the distal stabilization screws appears fractured. IMPRESSION: Intraoperative radiographs obtained during intramedullary adilene fixation of a distal tibial fracture Electronically signed by: Barber Anton M.D. 04/16/2016 8:23 PM Dictated Date/Time: 04/16/2016 8:21 PM
--- NOTE | 2016-04-16 20:35 | Anesthesiology Progress Note ---
Anesthesia Post Op Note Date & Time Apr 16, 2016 at 20:35 Vital Signs Pain Intensity: 0 Vital Signs Past 12 Hours Date Time Temp Pulse Resp B/P Pulse Ox O2 Delivery O2 Flow Rate FiO2 04/16/16 20:22 36.5 04/16/16 20:18 113/85 04/16/16 20:17 91 16 95 04/16/16 20:17 90 16 04/16/16 20:13 138/92 04/16/16 20:12 103 16 96 04/16/16 20:12 102 16 04/16/16 20:10 Nasal Cannula 4 04/16/16 20:08 140/96 04/16/16 20:07 98 18 96 04/16/16 20:07 99 18 04/16/16 20:03 123/81 04/16/16 20:02 82 23 100 04/16/16 20:02 83 23 04/16/16 19:58 118/82 04/16/16 19:57 90 17 04/16/16 19:57 90 17 97 04/16/16 19:53 112/61 04/16/16 19:52 90 17 04/16/16 19:52 93 17 97 04/16/16 19:48 116/72 04/16/16 19:47 86 20 04/16/16 19:47 86 20 96 04/16/16 19:43 118/69 04/16/16 19:42 88 15 96 04/16/16 19:42 88 15 04/16/16 19:42 36.3 89 14 118/69 95 Mask 10 04/16/16 15:15 37.3 83 16 117/70 94 Room Air 04/16/16 11:45 37.5 83 16 121/75 92 Room Air 04/16/16 10:45 37.3 83 16 138/77 93 Room Air 04/16/16 09:45 37.2 78 16 124/71 92 Room Air 04/16/16 08:45 37.2 80 16 113/72 93 Room Air Notes Mental Status: alert / awake / arousable, participated in evaluation Pt Amnestic to Procedure: Yes Nausea / Vomiting: adequately controlled Pain: adequately controlled Airway Patency, RR, SpO2: stable & adequate BP & HR: stable & adequate Hydration State: stable & adequate Anesthetic Complications: no major complications apparent Pt doing well.
[2016-04-16] MEDS: KETOROLAC TROMETHAMINE 30 MG/ML VIAL IV. SCH (22:17)
[2016-04-16] MEDS ORDERED: NURSING VERBAL MED ORDER ONE (23:00)
--- NOTE | 2016-04-16 23:21 | OPERATIVE REPORT ---
DATE OF OPERATION: 04/16/2016 PREOPERATIVE DIAGNOSES: 1. Right closed displaced distal one-third tibial fracture. 2. Closed displaced middle one-third fibular fracture. POSTOPERATIVE DIAGNOSES: Same. PROCEDURE: 1. Right intramedullary nailing tibial fracture with a Synthes 10 x 345 mm titanium cannulated tibial nail and 5.0 mm locking screws x2 proximally, 5.0 locking screws x2 distally, and a +5 mm locking end cap. 2. Placement of blocking screws x3. SURGEON: Dr. Wasserman. MATTRESS RENOVATOR: GRAHAM Toure, who was present for patient positioning, sterile prep and drape, management of retractors and instruments. He was present through the critical portions of the case including wound closure, application of sterile dressing and transport of the patient to recovery. ANESTHESIA: General LMA with regional block, right lower extremity. SPECIMENS: None. DRAINS: None. COMPLICATIONS: None. BLOOD LOSS: 25 mL PERTINENT HISTORY: This is a 36-year-old gentleman who was collecting firewood yesterday. He got his right lower extremity caught between some logs, fell and twisted and had a closed spiral oblique fracture of the distal one-third of the tibia and a closed spiral oblique comminuted fracture of his middle one-third of his fibula. Transported to [facility] where he was evaluated, radiographs were obtained, and he was then admitted to the hospital for further care and management. After he was evaluated and optimized by the medical service, the patient was then scheduled for surgery as indicated. All potential risks, benefits, complications, alternatives, rehab, potential for incomplete relief of symptoms, need for further surgery, persistent pain, swelling, scarring, weakness, neurovascular injury, wound complications, hardware failure, nonunion, malunion, DVT, PE, were discussed with the patient. The patient decided to proceed with the procedure as indicated. PROCEDURE IN DETAIL: The patient had a regional block to right lower extremity preoperatively. He was then taken to the operative suite, placed supine on the operating room table. The consent was reviewed and the proper operative site was identified. Next, the patient was then anesthetized, LMA was placed. Next, tourniquet was applied high on the right thigh over cast padding. Right lower extremity was then sterilely prepped and draped in usual fashion, elevated and exsanguinated with Esmarch bandage, tourniquet inflated to 350 mmHg. Next, a 15 blade scalpel was used to make an incision on the anterior aspect of the right knee. The incision was deepened through subcutaneous tissue. Meticulous hemostasis was achieved with electrocautery. Full-thickness skin flaps were developed. The paratenon of the patellar tendon was incised. Patellar tendon was then retracted laterally and the anterior capsule of the knee was then incised. Next, the proximal guide pin was placed into the proximal aspect of the tibia under live fluoroscopic assistance, both AP and lateral projections. Next, the proximal opening reamer was utilized to open the proximal tibial canal. Next, a ball-tipped guidewire was then gently bent and then inserted into the proximal portion of the fracture. Guidewire was then passed across the fracture, stabilizing the fracture distally, taking care to manipulate the fracture in a stable center-center position to ensure centralized reaming of the fracture. Next, 2 small stab incisions were made both medial and lateral to the fracture with a 15 blade scalpel and a tenaculum reduction forceps was placed to stabilize the fracture. Next, the initial reaming was performed up to approximately a size 9.5 mm, and then at this point due to the spiral oblique complicated nature of the fracture, blocking 3.5 mm screws were placed under live fluoroscopic assistance, one anterior to posterior at the distal fragment, one anterior to posterior at the proximal fragment, and then a third screw was placed in the anterior cortex region of the distal fragment. Next, sequential reaming then continued up to a size 11.5. The wound was copiously irrigated with sterile normal saline and the canal was irrigated gently with sterile normal saline. Next, the nail was moistened and then a 345 x 10 mm titanium Synthes cannulated tibial nail was then implanted and stabilized the fracture in near anatomic well-reduced position. Next, the proximal locking jig was then affixed to the proximal aspect of the tibial nail, and then using percutaneous technique, two 5.0 mm transverse locking screws were placed and tibial nail securing it. Next, using free hand technique, the two distal medial to lateral 5.0 mm locking screws were placed under live fluoroscopic assistance. After this was completed, all wounds were copiously irrigated with sterile normal saline. A 5.0 mm locking end cap was placed on the proximal tibia and one of the blocking screws had been reamed, weakend and broke, therefore, it was removed partially, leaving half of it behind in the intramedullary canal. The nail was noted to be stable. A second screw was dislodged through reaming from the medial to lateral aspect and this screw was then removed without compromising the final reduction of the fracture. Next, all wounds were copiously irrigated with sterile normal saline. Final x-rays were obtained, AP and lateral aspect of the tib and fib, and the capsule of the knee was then closed using #1 Vicryl. The retinaculum of the patellar tendon was then closed using #1 Vicryl. The paratenon was closed using buried 2-0 Vicryl, the dermis was closed using buried interrupted 2-0 Vicryl, and all skin incisions followed by closure of the distal skin incisions with 4-0 nylon and the proximal incisions were closed using skin elizabeth. There was noted to be a single anterior fracture blister measuring approximately 1 cm in diameter, this was ruptured and iodoform gauze was applied over it. Next, sterile compressive dressing and posterior Orthoglass splint were applied to stabilize the soft tissues in neutral dorsiflexion, this was overwrapped with an Doc wrap. The tourniquet was released. The patient was awakened and taken to recovery in stable condition. I attest to the content of the Intraoperative Record and any orders documented therein. Any exceptio ns are noted below.
[2016-04-16] MEDS: CEFAZOLIN SOD 2000 MG in DEXTROSE 5% 50ML IV SCH (23:53)
[2016-04-17 03:57] VITALS: BP 108/63; PULSE 85; TEMP 37.3; O2SAT 93
[2016-04-17] MEDS: KETOROLAC TROMETHAMINE 30 MG/ML VIAL IV. SCH (04:02)
[2016-04-17] MEDS: MoRPHine SULFATE 1 MG/ML 50 ML PCA CASS IV PRN ×6 (05:20→23:53)
[2016-04-17] MEDS: CEFAZOLIN SOD 2000 MG in DEXTROSE 5% 50ML IV SCH (06:26)
[2016-04-17 06:53] LABS: HEMATOCRIT 37.1 % (42-52); MEAN CELL VOLUME 88.1 fL (80-100); MEAN CORPUSCULAR HEMOGLOBIN 29.9 pg (25-34); MEAN PLATELET VOLUME 11.6 fL (7.4-10.4); PLATELET COUNT 165 K/uL (130-400); RED BLOOD COUNT 4.21 M/uL (4.7-6.1); WHITE BLOOD COUNT 11.53 K/uL (4.8-10.8)
[2016-04-17 07:04] VITALS: BP 107/65; PULSE 78; TEMP 36.8; O2SAT 93
[2016-04-17 07:13] LABS: CREATININE 1.1 mg/dl (0.60-1.40)
[2016-04-17] MEDS: DOCUSATE SODIUM 100 MG CAP PO SCH ×3 (08:27→22:21)
[2016-04-17] MEDS: ASPIRIN 325 MG ECTAB PO SCH (08:27)
[2016-04-17] MEDS: MULTIVITAMIN TAB PO SCH (08:27)
--- NOTE | 2016-04-17 08:52 | Orthopedic Progress Note ---
Orthopedic Progress Note Date of Service Apr 17, 2016. 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 NURSING MARKED THIS AM. HAS NOT BEEN REINFORCED YET.), capillary refill less than 2 sec. , A&O x3, toes mobile Date Time Temp Pulse Resp B/P Pulse Ox O2 Delivery O2 Flow Rate FiO2 04/17/16 07:28 Room Air 04/17/16 07:04 36.8 78 17 107/65 93 Room Air 04/17/16 03:57 37.3 85 16 108/63 93 Room Air 04/17/16 00:15 Nasal Cannula 2.0 04/16/16 23:30 37.2 96 16 110/65 96 Nasal Cannula 4.0 04/16/16 22:40 37.3 98 20 117/66 97 Nasal Cannula 4.0 04/16/16 21:40 37.5 92 16 115/70 94 Nasal Cannula 4.0 04/16/16 21:12 37.3 92 16 106/65 94 Nasal Cannula 4.0 04/16/16 21:05 93 Nasal Cannula 4.0 04/16/16 21:00 93 Nasal Cannula 4.0 04/16/16 20:40 37.4 95 16 126/78 93 Nasal Cannula 4.0 04/16/16 20:22 36.5 04/16/16 20:18 113/85 04/16/16 20:17 91 16 95 04/16/16 20:17 90 16 04/16/16 20:13 138/92 04/16/16 20:12 103 16 96 04/16/16 20:12 102 16 04/16/16 20:10 Nasal Cannula 4 04/16/16 20:08 140/96 04/16/16 20:07 98 18 96 04/16/16 20:07 99 18 04/16/16 20:03 123/81 04/16/16 20:02 82 23 100 04/16/16 20:02 83 23 04/16/16 19:58 118/82 04/16/16 19:57 90 17 04/16/16 19:57 90 17 97 04/16/16 19:53 112/61 2/6/17 19:52 90 17 04/16/16 19:52 93 17 97 04/16/16 19:48 116/72 04/16/16 19:47 86 20 04/16/16 19:47 86 20 96 04/16/16 19:43 118/69 04/16/16 19:42 88 15 96 04/16/16 19:42 88 15 04/16/16 19:42 36.3 89 14 118/69 95 Mask 10 04/16/16 15:15 37.3 83 16 117/70 94 Room Air 04/16/16 11:45 37.5 83 16 121/75 92 Room Air 04/16/16 10:45 37.3 83 16 138/77 93 Room Air 04/16/16 09:45 37.2 78 16 124/71 92 Room Air Laboratory Results 24 Hours: Test 04/17/16 06:17 Hematocrit 37.1 % Hemoglobin 12.6 g/dL Assessment & Plan Assessment: POD#1 SP ORIF RIGHT TIB/FIB Plan: NWB RLE NERVE BLOCK STARTING TO WEAR OFF. 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 CHECK DRESSING THIS AFTERNOON, MAY NEED TO CHANGE IF BLEEDING CONTINUES. Inhouse Planning Pain Management: ST[employer] INSTALLATION MECHANIC, Oxy IR DVT Prophylaxis: TEDs, SCDs, ASA Discharge Planning Discharge Planning: home
[2016-04-17 10:58] VITALS: BP 123/73; PULSE 92; O2SAT 96
[2016-04-17 11:55] VITALS: BP 120/68; PULSE 97; TEMP 36.7; O2SAT 93
[2016-04-17 15:35] VITALS: BP 122/78; PULSE 94; TEMP 36.9; O2SAT 96
[2016-04-17] MEDS ORDERED: LORAZEPAM INJ 0.5 MG in SYRINGE 0.75 ML IV ONE (16:00)
[2016-04-17] MEDS ORDERED: NURSING VERBAL MED ORDER ONE ×4 (16:00→23:45)
--- NOTE | 2016-04-17 16:47 | ORTHOPEDIC PROGRESS NOTE ---
DATE: 04/17/2016 DATE: 04/17/2016. SUBJECTIVE: The patient was seen earlier by Amber Carson PA-C for initial rounding and found that his splint was starting to get saturated with drainage on the posterior aspect and felt it might need changed if it continued to drain. It was decided this afternoon that it would be better for it to be changed and upon entering the room the patient was lying in bed and he was in moderate pain. He was having muscle spasms off and on and was having difficulty with controlling his pain. When asked, he moved all 5 toes very well but had some decreased sensation in the toes themselves and stated that he was having just some burning pain. Most of his pain was in and around the fracture site. OBJECTIVE: On examination of the splint it had moderate saturation over the posterior medial aspect of the patient' splint. The dressing and splint were then taken down and the splint was removed. The wounds were then cleaned and Xeroform was placed on all of the wounds at the knee and also just proximal to the ankle. He had some mild bloody drainage from one of the wound sites just above the ankle that had been closed but otherwise no overt drainage at this time. Toes were slightly mottled but capillary refill was still around 2 seconds or less and again he had full range of motion of his toes. Upon having him close his eyes and asking him what he felt whenever I was touching his toes he said that on brisk palpation he felt burning sensation in his toes whenever I was rubbing his toes on his right foot. He said they were definitely decreased sensation compared to the left. The wounds were then redressed with Xeroform, 4x4s, ABDs and cast padding was reapplied and a posterior splint was then lightly wrapped and placed by myself and Amber Carson PA-C. By the end of the process the patient's pain control was much better and it appeared that he had better pain relief with removing the initial dressing which I assume was causing him increased pain with tightness of the dressing and swelling. ASSESSMENT: Postop day 1 status post IM rodding right distal tibia fracture. PLAN: We added a second pillow to his elevation and plans for ice to the right ankle area. I told the patient that he could be up to a chair for a small amount of time or else to the bathroom but wanted him to stay mostly in bed with his leg elevated at this time with the ice bag surrounding the ankle itself. We had discussed with the patient that during the procedure that one of the screws that had been placed in the distal portion of the tibia had been broken during reaming and a portion of that screw was left in the canal itself in the bone and would likely be there for good. The patient understood and plans will be to try and increase his mobilization tomorrow and hopefully achieve adequate pain control with p.o. pain meds. I added Ativan 0.5 mg p.o. q. 8 hours to help with muscle spasms and plans will be to get rid of his VEGETABLE GROWER in the morning and continue him on p.o. pain medicine. Dr Wasserman was notified of the dressing change/findings. NELLIE
[2016-04-17] MEDS: OXYCODONE HCL IR 5 MG TAB (IMMEDIATE RELEASE) PO PRN (21:43)
[2016-04-17] MEDS ORDERED: KETOROLAC TROMETHAMINE 30 MG/ML VIAL IV. STA (21:56)
[2016-04-17 22:44] VITALS: BP 122/65; PULSE 92; TEMP 37.8; O2SAT 93
[2016-04-18] VITALS (7 sets, daily range): BP systolic 116–144; BP diastolic 55–94; PULSE 89–108; TEMP 37.1–38.1; O2SAT 90–96
[2016-04-18] MEDS ORDERED: VANCOMYCIN CONSULT ACTIVE PRN (00:30)
[2016-04-18] MEDS ORDERED: VANCOMYCIN INJ 2,500 MG in SODIUM CHLORIDE 0.9% 500ML 500 ML IV SCH (00:30)
[2016-04-18] MEDS ORDERED: NURSING VERBAL MED ORDER ONE (00:45)
--- NOTE | 2016-04-18 00:49 | Orthopedic Progress Note ---
Orthopedic Progress Note Date of Service Apr 18, 2016. Subjective Reports: complaints (Burning pain distal 1/3 tibia and toes. Sensation intact to light touch and motion.Poor pain control w/ Morphine [place] SEAMER.), using [place] SEAMER, Denies : SOB, light headedness, nausea / vomiting Additional Notes: Continued pain despite MSO4 [place] SE[place]ER and Toradol. Objective calves soft nontender, N/V intact, capillary refill less than 2 sec., incision C /D/I, A&O x3, toes mobile Compartments with swelling appropriate for fracture and post-surgical but not firm or tight. DP/PT 2/4 palpable. Moderate edema foot and lower leg. Some pain with passive dorsiflexion of the lesser toes. Ecchymosis secondary to local trauma. Decision made to test compartment pressures. Compartment pressures tested using sterile prep and technique. Compartment pressures as follows: Anterior 16mmHg, Lateral 15mmHg, Posterior Deep 19mmHg, Posterior Superficial 15mmHg. Date Time Temp Pulse Resp B/P Pulse Ox O2 Delivery O2 Flow Rate FiO2 04/17/16 22:44 37.8 92 16 122/65 93 Room Air 04/17/16 16:30 Room Air 04/17/16 15:35 36.9 94 16 122/78 96 Room Air 04/17/16 11:55 36.7 97 16 120/68 93 Room Air 04/17/16 10:58 92 96 04/17/16 07:28 Room Air 04/17/16 07:04 36.8 78 17 107/65 93 Room Air 04/17/16 03:57 37.3 85 16 108/63 93 Room Air Laboratory Results 24 Hours: Test 04/17/16 06:17 Hematocrit 37.1 % Hemoglobin 12.6 g/dL Assessment & Plan Assessment: POD#2 SP ORIF RIGHT TIB/FIB No objective evidence of compartment syndrome per [place] compartment pressure monitor. Plan: NWB RLE Dressing loosened and changed Ice and elevate R LE above heart Change to PO Oxycodone D/C MSO4 [place] SE[place]ER Intermittent Dilaudid if needed for breakthrough. Dressing change in am Inhouse Planning Pain Management: [place] SEAMER, Oxy IR DVT Prophylaxis: TEDs, SCDs, ASA Discharge Planning Discharge Planning: home
[2016-04-18] MEDS: HYDROmorphone INJ 1 MG/ML SYR IV PRN ×4 (01:06→13:01)
[2016-04-18] MEDS: D5W AND 1/2NSS 1,000 ML IV SCH ×3 (01:09→16:41)
[2016-04-18] MEDS: OXYCODONE HCL IR 5 MG TAB (IMMEDIATE RELEASE) PO PRN ×4 (02:22→14:58)
[2016-04-18] MEDS: LORAZEPAM INJ 0.5 MG in SYRINGE 0.75 ML IV PRN ×2 (03:43→14:53)
[2016-04-18 07:15] LABS: HEMATOCRIT 37.6 % (42-52); MEAN CELL VOLUME 88.9 fL (80-100); MEAN CORPUSCULAR HGB CONC 33.8 g/dl (32-36); MEAN PLATELET VOLUME 11.1 fL (7.4-10.4); PLATELET COUNT 174 K/uL (130-400); RED BLOOD COUNT 4.23 M/uL (4.7-6.1); WHITE BLOOD COUNT 10.67 K/uL (4.8-10.8)
[2016-04-18] MEDS: ASPIRIN 325 MG ECTAB PO SCH (07:26)
[2016-04-18] MEDS: DOCUSATE SODIUM 100 MG CAP PO SCH ×2 (07:27→20:58)
[2016-04-18] MEDS: MULTIVITAMIN TAB PO SCH (07:27)
[2016-04-18 07:41] LABS: CREATININE 0.99 mg/dl (0.60-1.40)
--- NOTE | 2016-04-18 07:53 | Orthopedic Progress Note ---
Orthopedic Progress Note Date of Service Apr 18, 2016. 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 No help so far with recent Oxy IR dose.), Denies: SOB, chest pain , pain controlled w PO medications Objective N/V intact, capillary refill less than 2 sec., A&O x3, toes mobile Patient very uncomfortable lying in bed. RLE splint in place. Dressing changed and moderate to severe bleeding onto the ABD pad at the anteromedial ankle. Calf is still tense. DP pulse feels to be faint. Cap refill is < 2 seconds. Decreased sensation in the right foot with light palpation. Date Time Temp Pulse Resp B/P Pulse Ox O2 Delivery O2 Flow Rate FiO2 04/18/16 07:24 37.9 97 18 136/94 94 Room Air 04/18/16 03:24 37.1 89 20 132/72 93 Room Air 04/18/16 00:00 Room Air 04/17/16 22:44 37.8 92 16 122/65 93 Room Air 04/17/16 16:30 Room Air 04/17/16 15:35 36.9 94 16 122/78 96 Room Air 04/17/16 11:55 36.7 97 16 120/68 93 Room Air 04/17/16 10:58 92 96 Laboratory Results 24 Hours: Test 04/18/16 07:00 Hematocrit 37.6 % Hemoglobin 12.7 g/dL Assessment & Plan Assessment: POD#2 SP ORIF RIGHT TIB/FIB No objective evidence of compartment syndrome per [place] compartment pressure monitor. 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 Will discuss any change in plan if the patient's pain does not become controlled. 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 Uncertain time line.)
[2016-04-18] MEDS ORDERED: VANCOMYCIN INJ 1,500 MG in SODIUM CHLORIDE 0.9% 500ML 500 ML IV SCH (10:00)
--- NOTE | 2016-04-18 10:04 | Progress Note ---
Subjective Date of Service: Apr 18, 2016. Subjective Pt evaluation today including: conversation w/ patient, conversation w/ family , physical exam, chart review, lab review, review of studies, conversation w/ work and family life consultant, review of inpatient medication list Voiding: no voiding problems Complaining about severe right lower extremity pain, 12/10, moaning Do not eating breakfast first this morning, Problem List Medical Problems: (1) Closed fracture of distal end of right fibula and tibia Status: Acute Review of Systems Constitutional: + fatigue, + weakness, No chills, No fever, No problem reported , No sweats, No weight loss Eyes: No diplopia, No discharge, No eye pain, No redness, No worsening of vision ENT: No dental problems, No hearing loss, No nasal symptoms, No sore throat, No tinnitus, No trouble swallowing, No unusual epistaxis Respiratory: No cough, No dyspnea at rest, No dyspnea on exertion, No hemoptysis, No shortness of breath, No sputum, No wheezing Cardiac: No PND, No chest pain, No claudication, No edema, No orthopnea, No palpitations Abdomen: No constipation, No diarrhea, No nausea, No pain, No vomiting Musculoskeletal: + joint pain, + see HPI, No calf pain, No muscle pain, No swelling Male : No dysuria, No hematuria, No incontinence, No nocturia more than once/ night, No slowing stream, No urinary frequency Neurologic: No balance problems, No memory loss, No numbness/tingling, No paralysis, No vertigo, No weakness Psychiatric: No anhedonism, No anxiety, No depression symptoms, No insomnia, No substance abuse Heme: No abnormal bleeding/bruising, No clotting problems, No night sweats, No swollen lymph nodes Endo: No excessive thirst, No excessive urination, No fatigue Skin: No bleeding, No color change, No itch, No new/changing skin lesions, No rash Objective Vital Signs Date Time Temp Pulse Resp B/P Pulse Ox O2 Delivery O2 Flow Rate FiO2 04/18/16 07:32 Room Air 04/18/16 07:24 37.9 97 18 136/94 94 Room Air 04/18/16 03:24 37.1 89 20 132/72 93 Room Air 04/18/16 00:00 Room Air 04/17/16 22:44 37.8 92 16 122/65 93 Room Air 04/17/16 16:30 Room Air 04/17/16 15:35 36.9 94 16 122/78 96 Room Air 04/17/16 11:55 36.7 97 16 120/68 93 Room Air 04/17/16 10:58 92 96 Physical Exam General Appearance: WD/WN, no apparent distress Eyes: normal inspection, PERRL, EOMI, sclerae normal ENT: normal ENT inspection, hearing grossly normal, pharynx normal, + pertinent finding (dry mucous membranes) Neck: supple, no adenopathy, thyroid normal, no JVD, no carotid bruits, trachea midline Respiratory/Chest: chest non-tender, normal breath sounds, no respiratory distress, no accessory muscle use, + decreased breath sounds Cardiovascular: regular rate, rhythm, no edema, no gallop, no JVD, no murmur Abdomen: normal bowel sounds, non tender, soft, no organomegaly, no pulsatile mass Extremities: normal capillary refill, pelvis stable, + pertinent finding ( right lower extremity in dress, and toes is normal color, normal Refill) 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, no motor/sensory deficits, alert, normal mood/affect, oriented x 3 Skin: normal color, warm/dry, no rash Lymphatic: no adenopathy Laboratory Results Last 24 Hours Test 04/18/16 07:00 White Blood Count 10.67 K/uL Red Blood Count 4.23 M/uL Hemoglobin 12.7 g/dL Hematocrit 37.6 % Mean Corpuscular Volume 88.9 fL Mean Corpuscular Hemoglobin 30.0 pg Mean Corpuscular Hemoglobin Concent 33.8 g/dl RDW Standard Deviation 43.9 fL RDW Coefficient of Variation 13.4 % Platelet Count 174 K/uL Mean Platelet Volume 11.1 fL Creatinine 0.99 mg/dl Est Creatinine Clear Calc Drug Dose 128.5 ml/min Estimated GFR () 113.1 Estimated GFR (Non- 97.6 Assessment and Plan Right tib-fib fracture, admitted to the orthopedic surgical service of Dr. Wasserman. POD#2 SP ORIF RIGHT TIB/FIB Activities, PT OT, DVT prophylaxis, pain management, and discharge plan will be per primary team Hospitalist consulted for medical management He looks dry with dry mucous membrane, not eating breakfast first, agree we'll continue current IV fluid Discussed with nurse to call primary team to adjust pain medicines because of significant pain Continued [facility] stay due to: multiple IV medications needed Discharge planning: rehab hospital
[2016-04-18] MEDS ORDERED: HYDROmorphone HCL 0.5MG/ML 50 ML CASSETTE IV PRN (15:30)
[2016-04-18] MEDS ORDERED: NALOXONE HCL 0.4 MG/1 ML VIAL/CARP IV PRN (16:00)
[2016-04-18] MEDS: HYDROmorphone HCL 0.5MG/ML 50 ML CASSETTE IV PRN ×4 (16:25→22:49)
--- NOTE | 2016-04-18 16:37 | ORTHOPEDIC PROGRESS NOTE ---
DATE: 04/18/2016 SUBJECTIVE: The patient is a 36-year-old white male who is postoperative day 2 from IM rodding of his right distal tibia fracture by Dr. Wasserman. I was called to see the patient this afternoon by nursing staff for pain control issues. The patient was seen by Jose Maria Melara PA-C this morning and dressing change was performed and patient was painful, but did not appear to be overtly so. Upon entering the room with Dr. Leonard present, the patient was turning red in the face and holding his right knee and appeared to be writhing in some pain and appeared to be very painful. The patient's biggest complaint was my leg feels like it is on fire all the way down to his toes. OBJECTIVE: The current splint and dressing was then taken down and wounds were inspected. Dr. Leonard palpated the tibial muscle compartments and the patient was most tender over the lateral aspect of the anterior compartment and lateral posterior compartment; however, most of the time Dr. Leonard felt that although he was tight, he felt some crepitus from the patient's fibular fracture at that point in time which the patient noted that is where he was having most of his pain when he was palpating that area. Medial compartments were soft and nontender as were the posterior compartment. Dr. Leonard then did a passive flexion and extension of the toes and initially the patient complained of increased pain; however, as Dr. Leonard continued to passively flex and extend the toes, the patient was not writhing in pain and not complaining of severe pain during that time. He had good capillary refill which is less than 2 seconds and it was noted that he appeared to have a little bit better coloration of his toes after the dressing was removed, although the toes were still pink and he was able to move them, a light dressing was reapplied to the wounds themselves and then a slight amount of Webril was applied around the dressings and splint. No Doc wrap was placed and the patient continued to appear more comfortable. ASSESSMENT: Postop day #2 status post intramedullary rodding, right tibia; pain control issues. PLAN: At this point in time, Dr. Leonard did not feel that a compartment syndrome was present and that the best course of action at this time was a light dressing without compression. We will add ice bags around the ankle at this time to help with pain control and as well his q. 3 hour IV Dilaudid will be discontinued and he will be restarted on a DIRECTOR VIDEO Dilaudid for now. I will also add Toradol and p.o. Tylenol to the regimen. We will discontinue his PT and OT at this time due to the fact that he ambulated 125' and that his pain increased following his PT session and became more uncontrolled . He will continue to use elevation as high as the patient will allow and try to continue to monitor him closely. NELLIE
[2016-04-18] MEDS: SODIUM CHLORIDE 0.9% 1000ML 1,000 ML IV SCH (16:41)
[2016-04-18] MEDS: VANCOMYCIN INJ 1,500 MG in SODIUM CHLORIDE 0.9% 500ML 500 ML IV SCH (17:39)
[2016-04-18] MEDS: ACETAMINOPHEN 500 MG TAB PO SCH (21:13)
[2016-04-19] VITALS (8 sets, daily range): BP systolic 116–131; BP diastolic 68–83; PULSE 86–105; TEMP 36.7–38.1; O2SAT 90–99
[2016-04-19] MEDS: D5W AND 1/2NSS 1,000 ML IV SCH ×2 (00:35→08:59)
[2016-04-19] MEDS: VANCOMYCIN INJ 1,500 MG in SODIUM CHLORIDE 0.9% 500ML 500 ML IV SCH ×2 (02:09→10:04)
[2016-04-19] MEDS ORDERED: VANCOMYCIN TROUGH SCH ×2 (05:30→09:30)
[2016-04-19] MEDS: ACETAMINOPHEN 500 MG TAB PO SCH ×3 (05:36→21:47)
[2016-04-19 06:55] LABS: HEMATOCRIT 37.4 % (42-52); MEAN CELL VOLUME 87.2 fL (80-100); MEAN CORPUSCULAR HEMOGLOBIN 29.8 pg (25-34); MEAN CORPUSCULAR HGB CONC 34.2 g/dl (32-36); MEAN PLATELET VOLUME 10.8 fL (7.4-10.4); PLATELET COUNT 191 K/uL (130-400); RED BLOOD COUNT 4.29 M/uL (4.7-6.1); WHITE BLOOD COUNT 13.61 K/uL (4.8-10.8)
[2016-04-19] MEDS: HYDROmorphone HCL 0.5MG/ML 50 ML CASSETTE IV PRN (07:10)
[2016-04-19 07:20] LABS: CREATININE 0.87 mg/dl (0.60-1.40)
[2016-04-19] MEDS: DOCUSATE SODIUM 100 MG CAP PO SCH ×2 (08:59→20:33)
[2016-04-19] MEDS: MULTIVITAMIN TAB PO SCH (08:59)
--- NOTE | 2016-04-19 11:06 | Orthopedic Progress Note ---
Orthopedic Progress Note Date of Service Apr 19, 2016. Subjective Post OP Day: 3 Additional Notes: Pt still rates pain 10/18 Objective N/V intact, toes mobile Lower leg splint/dressing loosely intact, lower leg moderately swollen, able to passively mobilize toes without significant discomfort Date Time Temp Pulse Resp B/P Pulse Ox O2 Delivery O2 Flow Rate FiO2 04/19/16 08:03 37.0 86 16 120/76 93 Room Air 04/19/16 07:00 Room Air 04/19/16 06:24 37.8 04/19/16 04:43 37.9 04/19/16 03:46 38.1 104 94 Room Air 04/19/16 03:34 37.8 104 20 117/68 90 Room Air 04/19/16 00:34 Room Air 04/18/16 22:55 37.5 98 18 116/55 90 Room Air 04/18/16 20:03 38.1 108 20 144/87 95 Room Air 04/18/16 20:00 96 Room Air 04/18/16 16:00 96 Room Air 04/18/16 15:48 37.7 95 16 143/89 96 Room Air Laboratory Results 24 Hours: Test 04/19/16 06:39 Hematocrit 37.4 % Hemoglobin 12.8 g/dL Assessment & Plan Assessment: POD#3 SP ORIF RIGHT TIB/FIB, pt still with moderate/severe pain No objective evidence of compartment syndrome per Rhea compartment pressure monitor. 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 Inhouse Planning Pain Management: ROCKET ENGINE MECHANIC, Oxy IR DVT Prophylaxis: TEDs, SCDs, ASA Discharge Planning Discharge Planning: home (When pain is controlled. Uncertain time line.)
--- NOTE | 2016-04-19 11:06 | Pharmacy Progress Note ---
Pharmacy Antibiotic Prog Note Date of Service: Apr 19, 2016. Subjective: The patient is currently receiving vancomycin 1500 mg IV every 8 hours. The patient is currently on day # 2 of IV therapy. Objective: Height (Feet): 6 Height (Inches): 1.00 Weight (Kilograms): 100.300 Levels: Item Value Date Time Vancomycin Level Trough 10.4 mcg/ml 04/19/16 0943 Lab Results (24hrs): Laboratory Tests Test 04/19/16 06:39 Creatinine 0.87 mg/dl White Blood Count 13.61 K/uL Assessment & Plan: Yesterday the patient continue to complain of pain and spike fevers. It appears that the patient's pain control has become better overnight and early this morning. This drug level is: Subtherapeutic Change to vancomycin 2000 mg IV every 8 hours (this should provide a 30% increase in level. I am not certain if this will provide adequate levels for a possible bone/joint infection). Goal peak level estimate: between 35 - 40 mcg/mL (may produce a higher trough around ~43). Goal trough level estimate: between 15 - 20 mcg/mL (possible bone and joint infection due to fracture). Trough has been ordered for: prior to 1400 dose. Pharmacy will continue to follow and will adjust dose/frequency as necessary. Thank you
--- NOTE | 2016-04-19 11:10 | Progress Note ---
Subjective Date of Service: Apr 19, 2016. Subjective Pt evaluation today including: conversation w/ patient, conversation w/ family , physical exam, chart review, lab review, review of studies, conversation w/ marine engineering consultant, review of inpatient medication list Right lower extremity pain is much better compared to yesterday, currently is 6- 8 out of 10, there is no color changes in the toes, Problem List Medical Problems: (1) Closed fracture of distal end of right fibula and tibia Status: Acute Review of Systems Constitutional: + weakness, No chills, No fatigue, No fever, No problem reported, No sweats, No weight loss Eyes: No diplopia, No discharge, No eye pain, No redness, No worsening of vision ENT: No dental problems, No hearing loss, No nasal symptoms, No sore throat, No tinnitus, No trouble swallowing, No unusual epistaxis Respiratory: No cough, No dyspnea at rest, No dyspnea on exertion, No hemoptysis, No shortness of breath, No sputum, No wheezing Cardiac: No PND, No chest pain, No claudication, No edema, No orthopnea, No palpitations Abdomen: No constipation, No diarrhea, No nausea, No pain, No vomiting Musculoskeletal: + joint pain, No calf pain, No muscle pain, No swelling Male : No dysuria, No hematuria, No incontinence, No nocturia more than once/ night, No slowing stream, No urinary frequency Neurologic: No balance problems, No memory loss, No numbness/tingling, No paralysis, No vertigo, No weakness Psychiatric: No anhedonism, No anxiety, No depression symptoms, No insomnia, No substance abuse Heme: No abnormal bleeding/bruising, No clotting problems, No night sweats, No swollen lymph nodes Endo: No excessive thirst, No excessive urination, No fatigue Skin: No bleeding, No color change, No itch, No new/changing skin lesions, No rash Objective Vital Signs Date Time Temp Pulse Resp B/P Pulse Ox O2 Delivery O2 Flow Rate FiO2 04/19/16 08:03 37.0 86 16 120/76 93 Room Air 04/19/16 07:00 Room Air 04/19/16 06:24 37.8 04/19/16 04:43 37.9 04/19/16 03:46 38.1 104 94 Room Air 04/19/16 03:34 37.8 104 20 117/68 90 Room Air 04/19/16 00:34 Room Air 04/18/16 22:55 37.5 98 18 116/55 90 Room Air 04/18/16 20:03 38.1 108 20 144/87 95 Room Air 04/18/16 20:00 96 Room Air 04/18/16 16:00 96 Room Air 04/18/16 15:48 37.7 95 16 143/89 96 Room Air Physical Exam General Appearance: WD/WN, no apparent distress Eyes: normal inspection, PERRL, EOMI, sclerae normal ENT: normal ENT inspection, hearing grossly normal, pharynx normal, + pertinent finding (mild dry mucous membrane) Neck: supple, no adenopathy, thyroid normal, no JVD, no carotid bruits, trachea midline Respiratory/Chest: chest non-tender, lungs clear, normal breath sounds, no respiratory distress, no accessory muscle use Cardiovascular: regular rate, rhythm, no edema, no gallop, no JVD, no murmur Abdomen: normal bowel sounds, non tender, soft, no organomegaly, no pulsatile mass Extremities: normal capillary refill, pelvis stable, + pertinent finding ( right lower extremity in dress, toes are exposed, no color changes, no tender) Neurologic/Psychiatric: associate director qa II-XII nml as tested, no motor/sensory deficits, alert, normal mood/affect, oriented x 3 Skin: normal color, warm/dry, no rash Lymphatic: no adenopathy Laboratory Results Last 24 Hours Test 04/19/16 06:39 04/19/16 09:43 White Blood Count 13.61 K/uL Red Blood Count 4.29 M/uL Hemoglobin 12.8 g/dL Hematocrit 37.4 % Mean Corpuscular Volume 87.2 fL Mean Corpuscular Hemoglobin 29.8 pg Mean Corpuscular Hemoglobin Concent 34.2 g/dl RDW Standard Deviation 41.5 fL RDW Coefficient of Variation 13.0 % Platelet Count 191 K/uL Mean Platelet Volume 10.8 fL Creatinine 0.87 mg/dl Est Creatinine Clear Calc Drug Dose 146.2 ml/min Estimated GFR () 128.7 Estimated GFR (Non- 111.0 Vancomycin Level Trough 10.4 mcg/ml Assessment and Plan 76-year-old white male with Right tib-fib fracture, admitted to the orthopedic surgical service of Dr. Wasserman. POD#3 SP ORIF RIGHT TIB/FIB Activities, PT OT, DVT prophylaxis, pain management, and discharge plan will be per primary team Hospitalist consulted for medical management He still looks dry with dry mucous membrane, Encourage oral intake and fluid intake We'll discontinue IV fluid Medicine will sign out, call if has questions Continued [facility] stay due to: multiple IV medications needed Discharge planning: rehab hospital
[2016-04-19] MEDS: SODIUM CHLORIDE 0.9% 1000ML 1,000 ML IV SCH (11:19)
[2016-04-19] MEDS: OXYCODONE HCL 10 MG TABCR (OXYCONTIN) PO SCH ×2 (12:00→20:33)
[2016-04-19] MEDS: VANCOMYCIN INJ 2,000 MG in SODIUM CHLORIDE 0.9% 500ML 500 ML IV SCH ×2 (13:28→21:47)
[2016-04-19] MEDS: HYDROmorphone INJ 2 MG/ML SYR/VIAL IV PRN (17:40)
[2016-04-19] MEDS: OXYCODONE HCL IR 5 MG TAB (IMMEDIATE RELEASE) PO PRN (21:46)
[2016-04-20] MEDS: HYDROmorphone INJ 2 MG/ML SYR/VIAL IV PRN ×2 (01:23→12:50)
[2016-04-20 05:44] LABS: HEMATOCRIT 38.9 % (42-52); MEAN CORPUSCULAR HEMOGLOBIN 29.5 pg (25-34); MEAN CORPUSCULAR HGB CONC 33.9 g/dl (32-36); MEAN PLATELET VOLUME 10.8 fL (7.4-10.4); PLATELET COUNT 214 K/uL (130-400); RED BLOOD COUNT 4.47 M/uL (4.7-6.1)
[2016-04-20] MEDS: VANCOMYCIN INJ 2,000 MG in SODIUM CHLORIDE 0.9% 500ML 500 ML IV SCH ×2 (06:00→14:00)
[2016-04-20] MEDS: ACETAMINOPHEN 500 MG TAB PO SCH ×2 (06:01→14:14)
[2016-04-20 06:17] LABS: BUN/CREATININE RATIO 8.2 (10-20); CALCIUM 8.7 mg/dl (8.5-10.1); CREATININE 0.91 mg/dl (0.60-1.40); MAGNESIUM 2.3 mg/dl (1.8-2.4); POTASSIUM 4.2 mmol/L (3.5-5.1)
[2016-04-20 07:18] VITALS: BP 125/81; PULSE 102; TEMP 37.7; O2SAT 96
[2016-04-20] MEDS: MULTIVITAMIN TAB PO SCH (08:56)
[2016-04-20] MEDS: OXYCODONE HCL 10 MG TABCR (OXYCONTIN) PO SCH (08:56)
[2016-04-20] MEDS ORDERED: POLYETHYLENE (MIRALAX) 17 GM PACK PO SCH (09:00)
[2016-04-20] MEDS ORDERED: SENNA 8.6 MG TAB PO SCH (09:00)
[2016-04-20] MEDS: DOCUSATE SODIUM 100 MG CAP PO SCH (09:05)
[2016-04-20 09:35] LABS: URINE APPEARANCE CLEAR (CLEAR); URINE BILIRUBIN NEG (NEG); URINE COLOR YELLOW; URINE EPITHELIAL CELL AUTO 0-5 /lpf (0-5); URINE NITRITE NEG (NEG); URINE PH 6.5 (4.5-7.5); UROBILINOGEN NEG (NEG)
[2016-04-20 09:36] LABS: MANUAL MICROSCOPIC REQUIRED? NO; REVIEW REQ? NO
[2016-04-20] MEDS ORDERED: OXYSR10 PO (12:48)
[2016-04-20] MEDS ORDERED: ASPEC325 PO (12:48)
[2016-04-20] MEDS ORDERED: ACET-1138 PO (12:48)
[2016-04-20] MEDS ORDERED: RXC5 PO (12:48)
--- NOTE | 2016-04-20 12:56 | Discharge Instructions ---
Discharge Instructions Admission Reason for Admission: Right Tib/Fib Fracture Discharge Discharge Diagnosis / Problem: Distal Right Tibia Fracture; Right Midshaft Fibular Fracture Discharge Goals Goal(s): Decrease discomfort, Improve function Activity Recommendations Activity Limitations: per Instructions/Follow-up section . Instructions / Follow-Up Instructions / Follow-Up Keep leg elevated on one or two pillows when at rest Ice to the surgical sites (knee, and just above the right ankle) regularly Keep dressing clean and dry You may loosen the kurtis wrap if it feels too tight Change your dressing once daily. Continue to use the splint with the dressing. You may shower if you keep a waterproof covering over the wounds NO WEIGHTBEARING ON THE RIGHT LOWER EXTREMITY You may use a walker or crutches to ambulate You may begin to ambulate more as the swelling goes down and the pain continues to lessen. Please call the office with any questions [phone] Wasserman or Jose Maria Melara PA-C in 1 week. Call for appointment. [phone] Current Hospital Diet Patient's current hospital diet: Regular Diet Discharge Diet Recommended Diet: Regular Diet Procedures Procedures Performed: Left Intramedullary Nailing Tibia; Placement of Blocking Screws x3 Pending Studies Studies pending at discharge: no Medical Emergencies . Who to Call and When: Medical Emergencies: If at any time you feel your situation is an emergency, please call 911 immediately. . Non-Emergent Contact Non-Emergency issues call your: Surgeon (Dr Wsaserman) Call Non-Emergent contact if: temperature is above 101, your pain is not controlled, your pain is worsening, wound has increased drainage, wound has increased redness . "Provider Documentation" section prepared by Cristhian Amin. VTE Core Measure Inpt VTE Proph given/why not?: Dena Rene, SCD's
[2016-04-20] MEDS ORDERED: VANCOMYCIN TROUGH SCH (13:30)
[2016-04-20] MEDS ORDERED: ASPEC81 PO ×2 (13:49→13:50)
[2016-04-20 13:59] VITALS: BP 125/81; PULSE 102; TEMP 37.7; O2SAT 96
--- NOTE | 2016-04-20 14:10 | Orthopedic Progress Note ---
Orthopedic Progress Note Date of Service Apr 20, 2016. Subjective Post OP Day: 4 Reports: feeling well, Denies: SOB, chest pain, light headedness, nausea / vomiting Additional Notes: Pain control better today. Running low grade temps off and on. Taking oral pain meds at this time with an occasional dose of IV pain meds. Pt feels he's ready to go home. Discussed how to take care of current splint/dressing. Objective calves soft nontender, A&O x3, CMS intact Dressings removed. Continues to have less draining from the wound. Still with swelling. Drainage is a serosanguineous drainage. Knee wounds without drainage and benign. Lower extrem wounds with essentially benign. 2 small sutured stab wounds with scant drainage. No overt erythema. Moderate swelling as noted. Moving toes well. Sensation in the toes is much improved. Cap refill < 2 seconds. Wounds redressed. Date Time Temp Pulse Resp B/P Pulse Ox O2 Delivery O2 Flow Rate FiO2 04/20/16 08:02 Room Air 04/20/16 07:45 Room Air 04/20/16 07:18 37.7 102 19 125/81 96 Room Air 04/19/16 23:35 Room Air 04/19/16 23:22 36.9 97 16 131/83 93 04/19/16 15:15 Room Air 04/19/16 15:10 37.1 105 18 116/72 93 Room Air Laboratory Results 24 Hours: Test 04/20/16 05:20 Hematocrit 38.9 % Hemoglobin 13.2 g/dL Assessment & Plan Assessment: POD#4 SP IM Rodding Right Tibia / Fibular fx (non op) Plan: NWB RLE Doing much better with pain control Will plan for dc to home today. Instructions given. F/U with Dr Wasserman next week. Inhouse Planning Pain Management: Oxycontin, Dilaudid, Oxy IR Discharge Planning Discharge Planning: home (When pain is controlled. Uncertain time line.) Pain Management: Oxycontin, PO Tylenol, Oxy IR DVT Prophylaxis: ASA
--- NOTE | 2016-04-20 18:50 | Progress Note ---
Subjective Date of Service: Apr 20, 2016. Subjective Pt evaluation today including: conversation w/ patient, conversation w/ family (mother, fiance), physical exam, chart review, lab review, conversation w/ senior talent management consultant (orthopedics), review of inpatient medication list Pain: RLE PO Intake: normal; denies anorexia Voiding: no voiding problems (denies dysuria) pt's only complaint is that of RLE pain he is aware of the low-grade temps he had yesterday denies chills, anorexia, fatigue, sore throat, headache, myalgias, chest pain, sob, cough, abdominal pain, nausea, emesis, diarrhea, dysuria or recent sick contacts denies recent tick bites Problem List Medical Problems: (1) Closed fracture of distal end of right fibula and tibia Status: Acute Review of Systems Constitutional: + sweats (last pm when he had low-grade temp), No chills ENT: No nasal symptoms, No sore throat Respiratory: No cough, No shortness of breath, No sputum Cardiac: No chest pain, No orthopnea Abdomen: No diarrhea, No nausea, No pain, No vomiting Musculoskeletal: + see HPI Objective Vital Signs Date Time Temp Pulse Resp B/P Pulse Ox O2 Delivery O2 Flow Rate FiO2 04/20/16 13:59 37.7 102 19 96 Room Air 04/20/16 08:02 Room Air 04/20/16 07:45 Room Air 04/20/16 07:18 37.7 102 19 125/81 96 Room Air 04/19/16 23:35 Room Air 04/19/16 23:22 36.9 97 16 131/83 93 Physical Exam General Appearance: WD/WN, no apparent distress ENT: pharynx normal Neck: no adenopathy, no JVD Respiratory/Chest: lungs clear, no respiratory distress, no accessory muscle use Cardiovascular: regular rate, rhythm, no gallop, no murmur Abdomen: normal bowel sounds, non tender, soft, no organomegaly Extremities: + pedal edema (right foot) Neurologic/Psychiatric: alert, oriented x 3 Skin: + pertinent finding (right foot - cap refill < 2 seconds; pulses 2+ b/l feet ) Lymphatic: no adenopathy (no cervical lymphadenopathy ) Laboratory Results Last 24 Hours Test 04/20/16 05:20 04/20/16 09:20 White Blood Count 14.40 K/uL Red Blood Count 4.47 M/uL Hemoglobin 13.2 g/dL Hematocrit 38.9 % Mean Corpuscular Volume 87.0 fL Mean Corpuscular Hemoglobin 29.5 pg Mean Corpuscular Hemoglobin Concent 33.9 g/dl RDW Standard Deviation 40.9 fL RDW Coefficient of Variation 12.7 % Platelet Count 214 K/uL Mean Platelet Volume 10.8 fL Sodium Level 138 mmol/L Potassium Level 4.2 mmol/L Chloride Level 103 mmol/L Carbon Dioxide Level 26 mmol/L Anion Gap 9.0 mmol/L Blood Urea Nitrogen 7 mg/dl Creatinine 0.91 mg/dl Est Creatinine Clear Calc Drug Dose 139.8 ml/min Estimated GFR () 125.2 Estimated GFR (Non- 108.0 BUN/Creatinine Ratio 8.2 Random Glucose 109 mg/dl Calcium Level 8.7 mg/dl Magnesium Level 2.3 mg/dl Urine Color YELLOW Urine Appearance CLEAR Urine pH 6.5 Urine Specific [place] 1.000 Urine Protein NEG Urine Glucose (UA) 1+ Urine Ketones NEG Urine Occult Blood 2+ Urine Nitrite NEG Urine Bilirubin NEG Urine Urobilinogen NEG Urine Leukocyte Esterase NEG Urine WBC (Auto) 0 /hpf Urine RBC (Auto) 0-4 /hpf Urine Hyaline Casts (Auto) 0 /lpf Urine Epithelial Cells (Auto) 0-5 /lpf Urine Bacteria (Auto) NEG Assessment and Plan 36yo male with: 1. right tib-fib fracture s/p ORIF by Dr. Wasserman - defer pain management, DVT proph, disposition, discharge, etc to orthopedics. 2. low-grade temperatures - values have been <38 degrees celcius. With that said he has had them for the past 48 hours. Despite such he feels well and denies any infectious symptoms. Sent u/a and urine cx; u/a not suggestive of UTI. Most recent cxr without pneumonia. Per orthopedic documentation his RLE incisions look good and w/o any superimposed infection. Low-grade temps could be due to post-surgery inflammation, etc. If he has a temp spike >38 would recommend blood cultures, flu testing, repeat cxr, etc. In meantime will follow clinically. 3. acute kidney injury - resolved. 4. constipation - resolved; had bowel movement this am. care plan d/w orthopedics gave update to his mother, father, and fiance during my visit Discharge planning: home with home health
== END 2016-04-20 15:15 | disposition home health service (06) | DRG 493 ==
LOC: ENRESERVDT → ENRESERVTM → EDBD 15:52 → C.EDC 15:53 → C.MSW 17:31
PROVIDERS: ADMIT Orthopaedic Surgery Sports Medicine; ATTEND Orthopaedic Surgery Sports Medicine
PROC: 0QHG06Z Insertion of Intramedullary Internal Fixation Device into Right Tibia, Open Approach (ICD-10-PCS; principal; 2016-04-16 08:45)
DX: S82.301A Unspecified fracture of lower end of right tibia, initial encounter for closed fracture (principal); N17.9 Acute kidney failure, unspecified; S82.491A Other fracture of shaft of right fibula, initial encounter for closed fracture; I45.10 Unspecified right bundle-branch block; F17.210 Nicotine dependence, cigarettes, uncomplicated; K59.00 Constipation, unspecified; W00.0XXA Fall on same level due to ice and snow, initial encounter; Y92.89 Other specified places as the place of occurrence of the external cause